=== PATIENT | male | born 1950 | race Caucasian/White ===

== ENCOUNTER 2022-05-03 05:18 | Day surgery (SDC) | payer BC ==
[2022-04-28 12:01] VITALS: BMI 26.6
[2022-05-03 09:40] VITALS: TEMP 97.8
[2022-05-03 10:08] VITALS: PULSE 57; RESP 18
[2022-05-03 10:21] VITALS: BP 130/77
== END 2022-05-03 10:22 | disposition home or self-care (01) ==
LOC: JASU-ENDO 05:18
PROVIDERS: ATTEND Student in an Organized Health Care Education/Training Program
PROC: 0DB78ZX Excision of Stomach, Pylorus, Via Natural or Artificial Opening Endoscopic, Diagnostic (ICD-10-PCS; 2022-05-03)
PROC: 0DB68ZX Excision of Stomach, Via Natural or Artificial Opening Endoscopic, Diagnostic (ICD-10-PCS; 2022-05-03)
PROC: 0DB98ZX Excision of Duodenum, Via Natural or Artificial Opening Endoscopic, Diagnostic (ICD-10-PCS; principal; 2022-05-03 09:00)
DX: K29.50 Unspecified chronic gastritis without bleeding (principal); K29.80 Duodenitis without bleeding
CPT/HCPCS: 88305-TC; 88342-TC

== ENCOUNTER 2022-05-24 04:37 | Day surgery (SDC) | payer BC ==
[2022-05-19 16:05] VITALS: BMI 26.6
[2022-05-24 07:41] VITALS: RESP 14
[2022-05-25 07:43] VITALS: TEMP 98.6
[2022-05-25 07:49] VITALS: BP 132/60; PULSE 52
== END 2022-05-24 09:40 | disposition home or self-care (01) ==
LOC: JASU-ENDO 04:37
PROVIDERS: ATTEND Student in an Organized Health Care Education/Training Program
PROC: 0DBM8ZX Excision of Descending Colon, Via Natural or Artificial Opening Endoscopic, Diagnostic (ICD-10-PCS; principal; 2022-05-24 08:00)
DX: Z12.11 Encounter for screening for malignant neoplasm of colon (principal); D12.4 Benign neoplasm of descending colon; K57.30 Diverticulosis of large intestine without perforation or abscess without bleeding; K64.8 Other hemorrhoids; Z86.010 Personal history of colon polyps
CPT/HCPCS: 88305-TC